=== PATIENT | female | born 1940 | race Caucasian/White ===

== ENCOUNTER 2018-07-31 17:01 | Observation (INO) | payer MEDICARE, OTHER ==
--- NOTE | 2018-07-31 17:33 | EDM.PDOC ---
ED HPI GENERAL MEDICAL PROBLEM - General Chief Complaint: General Stated Complaint: fall Time Seen by Provider: 07/31/18 17:05 Source of Information: Reports: Patient History Limitations: Reports: No Limitations - History of Present Illness INITIAL COMMENTS - FREE TEXT/NARRATIVE: Patient comes into the emergency department with EMS with complaints of a fall. Patient lives at the [facility] and had sustained a fall yesterday after tripping over her walker and again she fell today after tripping over her walker. Staff had noticed that she had some blood in her hair and also noted her lower extremities were extremely swollen. Staff ended up calling the ambulance for transfer to the emergency department. Patient denies any injuries and states that when she tripped and fell she did not hurt anything. However, when she fall yesterday did it did cause mild back pain that is resolved. Patient denies any shortness of breath, chest pain, dizziness, lightheadedness, headache, or GI upset. Patient does have a small puncture/laceration to the upper head with dried blood noted. Patient does not remember when her lower extremities became so swollen but does state that they do cause tenderness and discomfort the past couple of days. She denies anything making her lower extremities worse or better. Denies any recent injuries other than the fall yesterday and today or illnesses. Onset: Gradual Quality: Reports: Other Severity: Mild Improves with: Reports: None Worsens with: Reports: None Associated Symptoms: Reports: No Other Symptoms Bilateral Lower Leg Pain Score (Numeric/FACES): 9 - Related Data Allergies Allergy/AdvReac Type Severity Reaction Status Date / Time No Known Drug Allergies Allergy Other Verified 07/31/18 17:33 pollen extracts Allergy Irritabilit Verified 07/31/18 17:33 y Home Meds: Home Meds Ascorbic Acid [Vitamin C] 1,000 mg PO BID 01/15/14 [History] Calcium Carb & Citrate/Vit D3 [Calcium + Vitamin D3 Caplet] 1 each PO BID [History] Divalproex Sodium [Depakote] 500 mg PO Q12HR 01/15/14 [History] Levothyroxine 25 mcg PO ACBRK 01/15/14 [History] Magnesium Oxide [Magnesium] 400 mg PO DAILY 01/15/14 [History] Galax-3 Fatty Acids [Galax-3] 1,000 mg PO DAILY 01/15/14 [History] Primidone 250 mg PO BID 01/15/14 [History] Vitamin B Complex [B Complex] 1 each PO DAILY 01/15/14 [History] Zinc Gluconate 100 mg PO DAILY 01/15/14 [History] guaiFENesin/Codeine Phosphate [Guaifenesin AC Cough Syrup] 5 ml PO TID PRN 01/15 [History] Ibuprofen [IJD: Ibuprofen] 600 mg PO Q6H PRN #0 tablet 08/26/15 [Rx] Alendronate Sodium 70 mg PO Q7D 07/31/18 [History] Brimonidine Tartrate 1 drop EYERT TID 07/31/18 [History] Divalproex Sodium [Depakote] 125 mg PO ASDIRECTED 07/31/18 [History] Dorzolamide HCl/Timolol Maleat [Cosopt Eye Drops] 1 drop EYERT BID 07/31/18 [ History] Ferrous Sulfate 325 mg PO DAILY 07/31/18 [History] Sennosides/Docusate Sodium [Senna Plus Tablet] 1 each PO DAILY 07/31/18 [History ] Vit A/C/E AC/Znox/Cupric Oxide [Eye Vitamin-Minerals Tablet] 1 each PO BID 07/31 [History] Past Medical History HEENT History: Reports: Cataract, Impaired 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: Musculoskeletal History: Reports: Arthritis, Osteoporosis Neurological History: Reports: Seizure Endocrine/Metabolic History: Reports: Hypothyroidism - Infectious Disease History Infectious Disease History: Reports: Chicken Pox, Measles, Mumps - Past Surgical History HEENT Surgical History: Reports: Cataract Surgery Musculoskeletal Surgical History: Reports: Hip Replacement Social & Family History - Family History Family Medical History: Noncontributory - Living Situation & Occupation Living situation: Reports: Other ED ROS GENERAL - Review of Systems Review Of Systems: ROS reveals no pertinent complaints other than HPI. HEENT: Reports: No Symptoms Respiratory: Reports: No Symptoms Endocrine: Reports: No Symptoms GI/Abdominal: Reports: No Symptoms : Reports: No Symptoms Musculoskeletal: Reports: No Symptoms Neurological: Reports: No Symptoms Psychiatric: Reports: No Symptoms Hematologic/Lymphatic: Reports: No Symptoms Immunologic: Reports: No Symptoms ED EXAM, GENERAL - Physical Exam Exam: See Below Exam Limited By: No Limitations General Appearance: Alert, WD/WN, No Apparent Distress Eye Exam: Bilateral Eye: Abnormal Pupil (2 Left, 4 right- chronic condition), EOMI Throat/Mouth: Normal Inspection, Normal Lips Head: Normocephalic, Other (superficial puncture wound with dry blood noted. anterior-midline head) Neck: Normal Inspection, Supple, Non-Tender Respiratory/Chest: No Respiratory Distress, Lungs Clear, No Accessory Muscle Use , Chest Non-Tender, Decreased Breath Sounds Cardiovascular: Normal Peripheral Pulses, Regular Rate, Rhythm, Other (pedal and leg edema 3 + from ankle to knee bilateral ) Peripheral Pulses: 1+: Dorsalis Pedis (L), Dorsalis Pedis (R), 2+: Popliteal (L) , Popliteal (R), 3+: Radial (L), Radial (R), Femoral (L), Femoral (R) GI/Abdominal: Normal Bowel Sounds, Soft, Non-Tender, No Distention Extremities: Pedal Edema (3+), Slow Capillary Refill, Leg Pain, Increased Warmth , Redness Neurological: Alert, Oriented Course - Vital Signs Last Recorded V/S: Last Vital Signs Temp 36.6 C 07/31/18 17:05 Pulse 83 07/31/18 17:05 Resp 16 07/31/18 17:05 BP 118/49 L 07/31/18 17:05 Pulse Ox 96 07/31/18 17:05 - Orders/Labs/Meds Orders: Active Orders 24 hr Category Date Time Status EKG Documentation Completion [RC] STAT Care 07/31/18 17:22 Active Chest 1V Frontal [CR] Stat Exams 07/31/18 17:34 Ordered TSH ULTRASENSITIVE [CHEM] Stat Lab 07/31/18 18:53 Ordered VALPROIC ACID [REF] Stat Lab 07/31/18 18:52 Ordered Sodium Chloride 0.9% [Saline Flush] Med 07/31/18 17:22 Active 10 ml FLUSH ASDIRECTED PRN Peripheral IV Insertion Adult [OM.PC] Stat Oth 07/31/18 17:22 Ordered Medication Orders Sodium Chloride (Saline Flush) 10 ml FLUSH ASDIRECTED PRN PRN Reason: Keep Vein Open Labs: Laboratory Tests 07/31/18 07/31/18 07/31/18 Range/Units 18:08 18:08 18:08 WBC 4.3 (4.0-10.0) x10^3/uL RBC 3.70 L (4.00-5.50) x10^6/uL Hgb 11.8 L (12.0-16.0) g/dL Hct 35.8 (33.0-47.0) % MCV 96.8 H D (78.0-93.0) fL MCH 31.9 (26.0-32.0) pg MCHC 33.0 (32.0-36.0) g/dL RDW Coeff of Dominguez 17.1 H (10.0-15.0) % Plt Count 76 L (130-400) x10^3/uL Neut % (Auto) 57.0 (50.0-80.0) % Lymph % (Auto) 34.8 (25.0-50.0) % [place] % (Auto) 6.6 (2.0-11.0) % Eos % (Auto) 1.4 (0.0-4.0) % Baso % (Auto) 0.2 (0.2-1.2) % PT 11.1 (10.0-12.8) SEC INR 1.0 L (2.0-3.5) Sodium 142 (136-145) mmol/L Potassium 4.2 (3.5-5.1) mmol/L Chloride 104 (98-107) mmol/L Carbon Dioxide 30 (21-32) mmol/L Anion Gap 12.2 (10-20) mmol/L BUN 19 H (7-18) mg/dL Creatinine 0.5 L (0.55-1.02) mg/dL Est Cr Clr Drug Dosing 66.61 mL/min Estimated GFR (MDRD) > 60 Glucose 103 (74-106) mg/dL Calcium 8.9 (8.5-10.1) mg/dL Corrected Calcium 9.70 (8.5-10.1) mg/dL Total Bilirubin 0.7 (0.2-1.0) mg/dL AST 44 H (15-37) U/L ALT 26 (14-59) U/L Alkaline Phosphatase 102 (46-116) U/L Troponin I < 0.017 (<=0.056) ng/mL NT-Pro-B Natriuret Pep 715 H (<=450) pg/mL Total Protein 5.6 L (6.4-8.2) g/dL Albumin 3.0 L (3.4-5.0) g/dL Globulin 2.6 Albumin/Globulin Ratio 1.15 Meds: Medications Generic Name Dose Route Start Last Admin Trade Name Freq PRN Reason Stop Dose Admin Sodium Chloride 10 ml 07/31/18 17:22 Saline Flush FLUSH ASDIRECTED PRN Keep Vein Open Discontinued Medications Generic Name Dose Route Start Last Admin Trade Name Freq PRN Reason Stop Dose Admin Furosemide 20 mg 07/31/18 18:48 Lasix IV 07/31/18 18:49 ONETIME ONE Departure - Departure Time of Disposition: 19:00 Disposition: Home, Self-Care 01 Condition: Good Clinical Impression: Swelling of lower extremity Fall Qualifiers: Encounter type: initial encounter Qualified Code(s): W19.XXXA - Unspecified fall, initial encounter - Discharge Information *PRESCRIPTION DRUG MONITORING PROGRAM REVIEWED*: Not Applicable *COPY OF PRESCRIPTION DRUG MONITORING REPORT IN PATIENT DEMARCUS: Not Applicable Instructions: Edema Forms: ED Department Discharge Additional Instructions: 1. rest 2. elevated the extremities above the level of the heart while seated 3. Follow up in the clinic wednesday or wednesday with Jessica Heaton in the Clinic 4. We gave you 20mg of lasix in the ER today 5. Activity and diet as tolerated 6. Ensure safe foot wear in the home and make sure not to have loose items on the floor. 7. Call with questions or concerns - Problem List Review Problem List Initiated/Reviewed/Updated: Yes - My Orders Last 24 Hours: My Active Orders 07/31/18 17:22 EKG Documentation Completion [RC] STAT Sodium Chloride 0.9% [Saline Flush] 10 ml FLUSH ASDIRECTED PRN Peripheral IV Insertion Adult [OM.PC] Stat 07/31/18 17:34 Chest 1V Frontal [CR] Stat 07/31/18 18:52 VALPROIC ACID [REF] Stat 07/31/18 18:53 TSH ULTRASENSITIVE [CHEM] Stat - Assessment/Plan Last 24 Hours: My Active Orders 07/31/18 17:22 EKG Documentation Completion [RC] STAT Sodium Chloride 0.9% [Saline Flush] 10 ml FLUSH ASDIRECTED PRN Peripheral IV Insertion Adult [OM.PC] Stat 07/31/18 17:34 Chest 1V Frontal [CR] Stat 07/31/18 18:52 VALPROIC ACID [REF] Stat 07/31/18 18:53 TSH ULTRASENSITIVE [CHEM] Stat Assessment:: 1. Lowe extremity cellulitis 2. Fluid over load 3. Fall Plan: 1. Labs completed in the ER. Results reviewed with the patient 2. CT completed emergency department. Patient 3. Wound care completed emergency department. 4. EKG completed in the emergency room. Results reviewed with patient. sinus rhythm 5. Chest-xray completed in the ER. Results reviewed with the patient 6. Dr. Tam Consulted. She recommends follow up Wednesday or Wednesday in the Clinic with staff also request for TSH level and Depakote level. 7. Education provided to follow up care, activity, diet, and Lasix. 8. All questions and concerns addressed prior to discharge.
--- NOTE | 2018-07-31 18:03 | CT ---
[id number] CT/CT Head WO IV EXAM: CT Head WO IV CLINICAL DATA: TRAUMA COMPARISON: NO PREVIOUS SIMILAR EXAM IS AVAILABLE FOR COMPARISON. FINDINGS: There is no mass or mass effect. There is no hemorrhage or hydrocephalus. There are no extra-axial fluid collections. There are no sites of abnormal attenuation. IMPRESSION: NO PLAIN CT EVIDENCE OF ACUTE INTRACRANIAL PROCESS. Adán Melgar MD 07/31/18 [id number] Thank you for allowing us to participate in the care of your patient.
[2018-07-31 18:45] LABS: CHLORIDE,CL 104 mmol/L (98-107); SODIUM,NA 142 mmol/L (136-145)
[2018-07-31 18:46] LABS: ANION GAP 12.2 mmol/L (10-20)
[2018-07-31] MEDS ORDERED: Furosemide 20 MG/2 ML VIAL IV ONE (18:48)
[2018-07-31] MEDS: Sodium Chloride 0.9% 10 ML Syringe FLUSH PRN (19:09)
--- NOTE | 2018-07-31 19:33 | CR ---
[id number] RAD/RAD Chest PA or AP 1V EXAM: SINGLE VIEW CHEST. INDICATION: TRAUMA COMPARISON: NO PREVIOUS SIMILAR EXAM IS AVAILABLE FINDINGS: There is volume loss and pleural reaction at the left lung base. There is question of lower left rib fractures. If there is chest pain or abdominal pain, consider contrast CT chest and abdomen. There is no pneumothorax. The cardiac silhouette is enlarged. IMPRESSION: PLEURAL-PARENCHYMAL CHANGES AT LEFT LUNG BASE. CONSIDER FURTHER STUDIES IF NEEDED. QUESTION IS RAISED IF TRAUMA IS ON THE RIGHT OR LEFT SIDE. Adán Melgar MD 07/31/18 [id number] Thank you for allowing us to participate in the care of your patient.
[2018-07-31] MEDS ORDERED: diphenhydrAMINE 25 MG Cap PO PRN (22:42)
[2018-07-31] MEDS ORDERED: Ibuprofen 200 MG Tab PO PRN (22:58)
[2018-08-01] MEDS ORDERED: Levothyroxine 50 MCG Tab PO SCH (07:00)
[2018-08-01 07:42] LABS: ANION GAP 12.1 mmol/L (10-20); CHLORIDE,CL 104 mmol/L (98-107); SODIUM,NA 141 mmol/L (136-145)
[2018-08-01] MEDS ORDERED: Divalproex Sodium Delayed-Release 250 MG Tab.CR PO SCH (08:00)
[2018-08-01] MEDS ORDERED: Non-Formulary Medication 1 Each (Ascorbic Acid [Vitamin C] 1,000 MG) PO SCH (08:00)
[2018-08-01] MEDS ORDERED: Divalproex Sodium Delayed-Release 125 MG Cap.Sprink PO SCH ×2 (08:00→20:00)
[2018-08-01] MEDS: Fish Oil/Omega-3 Fatty Acids 1 Gm Cap PO SCH (08:18)
[2018-08-01] MEDS: Primidone 50 MG Tab PO SCH ×2 (08:18→20:37)
[2018-08-01] MEDS: Acetaminophen 500 MG Tab PO SCH ×3 (08:19→20:31)
[2018-08-01] MEDS: Ascorbic Acid 500 MG Tab PO SCH (08:19)
[2018-08-01] MEDS: Divalproex Sodium 500 MG Tab.ER PO SCH ×2 (08:20→20:32)
[2018-08-01] MEDS: Zinc (Zinc Gluconate) 50 MG Tab PO SCH (08:20)
[2018-08-01] MEDS: Cholecalciferol (Vitamin D3) 1,000 Unit Tab PO SCH (08:20)
[2018-08-01] MEDS: Ferrous Sulfate 325 MG Tab PO SCH (08:20)
[2018-08-01] MEDS: Calcium Carbonate/Vitamin D3 1250 MG-200 Unit Tab PO SCH ×2 (08:20→20:34)
[2018-08-01] MEDS: Divalproex Sodium Delayed-Release 250 MG Tab.CR PO SCH (08:20)
[2018-08-01] MEDS: Magnesium Oxide 400 MG Tab PO SCH (08:20)
[2018-08-01] MEDS: Vitamin B Complex Tab.ER PO SCH (08:34)
[2018-08-01] MEDS ORDERED: Iopamidol 612 MG/ML 100 ML Bottle IVPUSH ONE (10:25)
--- NOTE | 2018-08-01 11:35 | PCM.PN ---
- General Info Date of Service: 08/01/18 Admission Dx/Problem (Free Text): Pt. hospitalized this last evening for increased peripheral edema and lower extremity weakness. She states that she is feeling better this AM. PT worked with the patient and she was complaining of some low back pain. CT lumbar spine with contrast was ordered and results are pending. She was able to ambulate with assistance. Met with the patient's family. They are concerned about the patient's cognitive functioning and her ability to care for herself at [facility]. She has been having frequent falls and often doesn't call for assistance when she needs it. Family is requesting a "second opinion" as the staff at [facility] states that they feel she is a good candidate for the facility. Her legs are somewhat less edematous today. She states that overall her pain is improved from last night. Functional Status: Reports: Pain Controlled - Review of Systems General: Reports: No Symptoms HEENT: Reports: No Symptoms Pulmonary: Reports: No Symptoms Cardiovascular: Reports: Edema Gastrointestinal: Reports: No Symptoms Genitourinary: Reports: No Symptoms Musculoskeletal: Reports: No Symptoms Skin: Reports: No Symptoms Neurological: Reports: No Symptoms Psychiatric: Reports: No Symptoms - Patient Data Vitals - Most Recent: Last Vital Signs Temp 36.7 C 08/01/18 10:00 Pulse 88 08/01/18 10:00 Resp 18 08/01/18 10:00 BP 96/44 L 08/01/18 10:00 Pulse Ox 93 L 08/01/18 10:00 Weight - Most Recent: 49.895 kg I&O - Last 24 Hours: Intake & Output 07/31/18 08/01/18 08/01/18 22:59 06:59 14:59 Intake Total 50 Balance 50 Lab Results Last 24 Hours: Laboratory Results - last 24 hr 07/31/18 07/31/18 07/31/18 Range/Units 18:08 18:08 18:08 WBC 4.3 (4.0-10.0) x10^3/uL RBC 3.70 L (4.00-5.50) x10^6/uL Hgb 11.8 L (12.0-16.0) g/dL Hct 35.8 (33.0-47.0) % MCV 96.8 H D (78.0-93.0) fL MCH 31.9 (26.0-32.0) pg MCHC 33.0 (32.0-36.0) g/dL RDW Coeff of Dominguez 17.1 H (10.0-15.0) % Plt Count 76 L (130-400) x10^3/uL Neut % (Auto) 57.0 (50.0-80.0) % Lymph % (Auto) 34.8 (25.0-50.0) % [place] % (Auto) 6.6 (2.0-11.0) % Eos % (Auto) 1.4 (0.0-4.0) % Baso % (Auto) 0.2 (0.2-1.2) % PT 11.1 (10.0-12.8) SEC INR 1.0 L (2.0-3.5) Sodium 142 (136-145) mmol/L Potassium 4.2 (3.5-5.1) mmol/L Chloride 104 (98-107) mmol/L Carbon Dioxide 30 (21-32) mmol/L Anion Gap 12.2 (10-20) mmol/L BUN 19 H (7-18) mg/dL Creatinine 0.5 L (0.55-1.02) mg/dL Est Cr Clr Drug Dosing 66.61 mL/min Estimated GFR (MDRD) > 60 Glucose 103 (74-106) mg/dL Calcium 8.9 (8.5-10.1) mg/dL Corrected Calcium 9.70 (8.5-10.1) mg/dL Total Bilirubin 0.7 (0.2-1.0) mg/dL AST 44 H (15-37) U/L ALT 26 (14-59) U/L Alkaline Phosphatase 102 (46-116) U/L Troponin I < 0.017 (<=0.056) ng/mL NT-Pro-B Natriuret Pep 715 H (<=450) pg/mL Total Protein 5.6 L (6.4-8.2) g/dL Albumin 3.0 L (3.4-5.0) g/dL Globulin 2.6 Albumin/Globulin Ratio 1.15 TSH, Ultra Sensitive (0.358-3.74) uIU/mL 07/31/18 08/01/18 08/01/18 Range/Units 18:08 06:55 07:14 WBC 3.7 L (4.0-10.0) x10^3/uL RBC 3.43 L (4.00-5.50) x10^6/uL Hgb 11.0 L (12.0-16.0) g/dL Hct 33.2 (33.0-47.0) % MCV 96.8 H (78.0-93.0) fL MCH 32.1 H (26.0-32.0) pg MCHC 33.1 (32.0-36.0) g/dL RDW Coeff of Dominguez 17.0 H (10.0-15.0) % Plt Count 74 L (130-400) x10^3/uL Neut % (Auto) 53.6 (50.0-80.0) % Lymph % (Auto) 38.0 (25.0-50.0) % [place] % (Auto) 7.3 (2.0-11.0) % Eos % (Auto) 1.1 (0.0-4.0) % Baso % (Auto) 0.0 L (0.2-1.2) % PT (10.0-12.8) SEC INR (2.0-3.5) Sodium 141 (136-145) mmol/L Potassium 4.1 (3.5-5.1) mmol/L Chloride 104 (98-107) mmol/L Carbon Dioxide 29 (21-32) mmol/L Anion Gap 12.1 (10-20) mmol/L BUN 18 (7-18) mg/dL Creatinine 0.5 L (0.55-1.02) mg/dL Est Cr Clr Drug Dosing 66.61 mL/min Estimated GFR (MDRD) > 60 Glucose 95 (74-106) mg/dL Calcium 8.3 L (8.5-10.1) mg/dL Corrected Calcium 9.42 (8.5-10.1) mg/dL Total Bilirubin 0.8 (0.2-1.0) mg/dL AST 36 (15-37) U/L ALT 20 (14-59) U/L Alkaline Phosphatase 88 (46-116) U/L Troponin I (<=0.056) ng/mL NT-Pro-B Natriuret Pep (<=450) pg/mL Total Protein 4.9 L (6.4-8.2) g/dL Albumin 2.6 L (3.4-5.0) g/dL Globulin 2.3 Albumin/Globulin Ratio 1.13 TSH, Ultra Sensitive 4.516 H (0.358-3.74) uIU/mL Med Orders - Current: Current Medications Acetaminophen (Tylenol Extra Strength) 1,000 mg PO TID [facility] Last Admin: 08/01/18 08:19 Dose: 1,000 mg Ascorbic Acid (Vitamin C) 1,000 mg PO DAILY [facility] Last Admin: 08/01/18 08:19 Dose: 1,000 mg Calcium Carbonate (Calcium Carbonate/Vitamin D 1250 Mg-200 Unit) 1 tab PO BID [facility] Last Admin: 08/01/18 08:20 Dose: 1 tab Cholecalciferol (Vitamin D3) 2,000 units PO DAILY [facility] Last Admin: 08/01/18 08:20 Dose: 2,000 units Diphenhydramine HCl (Benadryl) 25 mg PO Q6H PRN PRN Reason: Allergies Divalproex Sodium (Depakote Er) 500 mg PO BID [facility] Last Admin: 08/01/18 08:20 Dose: 500 mg Divalproex Sodium (Depakote Sprinkle) 125 mg PO DAILY@1999 [facility] Divalproex Sodium (Divalproex Sodium) 250 mg PO DAILY [facility] Last Admin: 08/01/18 08:20 Dose: 250 mg Ferrous Sulfate (Ferrous Sulfate) 325 mg PO DAILY [facility] Last Admin: 08/01/18 08:20 Dose: 325 mg Fish Oil (Fish Oil) 1 gm PO DAILY [facility] Last Admin: 08/01/18 08:18 Dose: 1 gm Ibuprofen (Motrin) 600 mg PO Q8H PRN PRN Reason: PAIN Latanoprost (Xalatan 0.005% Ophth Soln) 0 ml EYERT BEDTIME [facility] Levothyroxine Sodium (Synthroid) 50 mcg PO ACBREAKFAST [facility] Magnesium Oxide (Magnesium Oxide) 400 mg PO DAILY [facility] Last Admin: 08/01/18 08:20 Dose: 400 mg Multivitamins/Minerals (Prosight) 2 tab PO BID [facility] Primidone (Mysoline) 250 mg PO BID [facility] Last Admin: 08/01/18 08:18 Dose: 250 mg Senna/Docusate Sodium (Senna Plus) 1 tab PO DAILY [facility] Last Admin: 08/01/18 08:19 Dose: 1 tab Sodium Chloride (Saline Flush) 10 ml FLUSH ASDIRECTED PRN PRN Reason: Keep Vein Open Last Admin: 07/31/18 19:09 Dose: 10 ml Vitamin B Complex (Balanced B-50) 1 each PO DAILY [facility] Last Admin: 08/01/18 08:34 Dose: 1 each Zinc Gluconate (Zinc) 100 mg PO DAILY [facility] Last Admin: 08/01/18 08:20 Dose: 100 mg Discontinued Medications Divalproex Sodium (Depakote Sprinkle) 125 mg PO BID [facility] Furosemide (Lasix) 20 mg IV ONETIME ONE Stop: 07/31/18 18:49 Last Admin: 07/31/18 19:08 Dose: 20 mg Iopamidol (Isovue-300 (61%)) 100 ml IVPUSH ONETIME ONE Stop: 08/01/18 10:26 Last Admin: 08/01/18 10:37 Dose: 100 ml Levothyroxine Sodium (Synthroid) 50 mcg PO ACBRK [facility] Last Admin: 08/01/18 06:07 Dose: 50 mcg Non-Formulary Medication (Ascorbic Acid [Vitamin C]) 1,000 mg PO BID [facility] - Exam General: Alert, Oriented Neck: Supple Lungs: Clear to Auscultation, Normal Respiratory Effort Cardiovascular: Regular Rate, Regular Rhythm GI/Abdominal Exam: Normal Bowel Sounds, Soft, Non-Tender, No Organomegaly, No Distention (Female) Exam: Deferred Back Exam: Normal Inspection, Full Range of Motion Extremities: Normal Inspection, Normal Range of Motion, Non-Tender, Pedal Edema Skin: Warm, Dry, Intact Neurological: No New Focal Deficit Psy/Mental Status: Alert, Normal Affect, Normal Mood - Problem List Review Problem List Initiated/Reviewed/Updated: Yes - My Orders Last 24 Hours: My Active Orders 07/31/18 19:37 Patient Status [ADT] Routine Urinary Catheter Assessment [RC] ,20 07/31/18 19:59 Intake and Output [RC] 06,18 Up With Assistance [RC] 08,20 Vital Signs [RC] 06,10,14,18,22,02 07/31/18 22:42 diphenhydrAMINE [Benadryl] 25 mg PO Q6H PRN 07/31/18 22:58 Ibuprofen [Motrin] 600 mg PO Q8H PRN 08/01/18 02:17 Code Status [Resuscitation Status] Routine 08/01/18 06:56 Consult to Physical Therapy [PT Evaluation and Treatment] [CONS] Routine OT Evaluation and Treatment [CONS] Routine 08/01/18 08:00 Acetaminophen [Tylenol Extra Strength] 1,000 mg PO TID Ascorbic Acid [Vitamin C] 1,000 mg PO DAILY Beta-Carotene(A) w/C & E/Min [Prosight] 2 tab PO BID Calcium Carbonate/Vitamin D3 [Calcium Carbonate/Vitamin D 1250 MG-200 Unit] 1 tab PO BID Cholecalciferol (Vitamin D3) [Vitamin D3] 2,000 units PO DAILY Divalproex Sodium 250 mg PO DAILY Divalproex Sodium [Depakote ER] 500 mg PO BID Docusate Sodium/Sennosides [Senna Plus] 1 tab PO DAILY Ferrous Sulfate 325 mg PO DAILY Fish Oil/[place]-3 Fatty Acids [Fish Oil] 1 gm PO DAILY Magnesium Oxide 400 mg PO DAILY Primidone [Mysoline] 250 mg PO BID Vitamin B Complex [Balanced B-50] 1 each PO DAILY Zinc Gluconate [Zinc] 100 mg PO DAILY 08/01/18 10:15 Lumbar Spine w Cont [CT] Routine 08/01/18 11:01 Antiembolic Devices [RC] PER UNIT ROUTINE Antiembolic Hose [OM.PC] Routine 08/01/18 20:00 Divalproex Sodium [Depakote Sprinkle] 125 mg PO DAILY@2000 Latanoprost [Xalatan 0.005% Ophth Soln] 0 ml EYERT BEDTIME 08/01/18 Breakfast Heart Healthy Diet [DIET] 08/02/18 07:00 Levothyroxine [Synthroid] 50 mcg PO ACBREAKFAST - Plan Plan:: CT lumbar spine with contast is pending. Her labs this AM are unchanged. Antiembolic hose were ordered. Will have PT work with the patient this afternoon and cognitive eval was ordered from OT. Will discuss findings with patient's family later this afternoon. Social work was involved with family as well this AM.
--- NOTE | 2018-08-01 11:48 | CT ---
[id number] CT/CT Lumbar Spine W IV Exam: CT Lumbar Spine W IV Clinical Data: BACK PAIN COMPARISON: NO PREVIOUS SIMILAR EXAM IS AVAILABLE FINDINGS: There is massive splenomegaly. This raises the question of chronic lymphogenous leukemia or myelofibrosis. Degenerative changes of the lumbar spine are seen. There is no lytic or blastic change. There is no subluxation. There is mild loss of height of multiple vertebrae. Age of the mild fracture deformities is indeterminate. L1-L2: There is marginal osteophyte at this level. L2-L3: There is a mild bulging annulus. L3-L4: There is spinal stenosis. There is significant bilateral foraminal narrowing. L4-L5: There is borderline spinal stenosis. There is significant bilateral foraminal narrowing. L5-S1: No abnormality is seen at this level. IMPRESSION: MASSIVE SPLENOMEGALY. MILD COMPRESSION DEFORMITIES OF THORACIC AND LUMBAR SPINE AGE INDETERMINATE. MODERATE DEGENERATIVE CHANGES MID LUMBAR SPINE. Adán Melgar MD 08/01/18 1647 Thank you for allowing us to participate in the care of your patient.
[2018-08-01] MEDS ORDERED: Acetaminophen/HYDROcodone 325-5 MG Tab PO PRN (12:14)
[2018-08-01] MEDS: Beta-Carotene (Vitamin A) w/Vitamin C & E plus Minerals Tab PO SCH ×2 (12:41→20:33)
--- NOTE | 2018-08-01 18:37 | PCM.PN ---
- General Info Date of Service: 08/01/18 Admission Dx/Problem (Free Text): CT scan showed several areas of compression fracture of the T and L spine as well as areas of neuroforaminal narrowing/degenerative disk disease of the L spine. Age of these injuries is undetermined. She also had evidence of splenomegaly. He has no known history of lymphoma, leukemia, or blood dyscrasias. Pt. was able to participate in PT today. Pt. states that they would like to work with her tomorrow AM and afternoon and anticipate discharge tomorrow afternoon. OT cognitive eval is pending. Functional Status: Reports: Pain Controlled - Review of Systems General: Reports: No Symptoms HEENT: Reports: No Symptoms Pulmonary: Reports: No Symptoms Cardiovascular: Reports: No Symptoms Gastrointestinal: Reports: No Symptoms Genitourinary: Reports: No Symptoms Musculoskeletal: Reports: Back Pain Skin: Reports: No Symptoms Neurological: Reports: No Symptoms Psychiatric: Reports: No Symptoms - Patient Data Vitals - Most Recent: Last Vital Signs Temp 36.3 C 08/01/18 14:00 Pulse 78 08/01/18 14:00 Resp 16 08/01/18 14:00 BP 110/45 L 08/01/18 14:00 Pulse Ox 93 L 08/01/18 14:00 Weight - Most Recent: 49.895 kg I&O - Last 24 Hours: Intake & Output 08/01/18 08/01/18 08/01/18 06:59 14:59 22:59 Intake Total 50 240 Balance 50 240 Lab Results Last 24 Hours: Laboratory Results - last 24 hr 07/31/18 07/31/18 07/31/18 Range/Units 18:08 18:08 18:08 WBC (4.0-10.0) x10^3/uL RBC (4.00-5.50) x10^6/uL Hgb (12.0-16.0) g/dL Hct (33.0-47.0) % MCV (78.0-93.0) fL MCH (26.0-32.0) pg MCHC (32.0-36.0) g/dL RDW Coeff of Dominguez (10.0-15.0) % Plt Count (130-400) x10^3/uL Neut % (Auto) (50.0-80.0) % Lymph % (Auto) (25.0-50.0) % [place] % (Auto) (2.0-11.0) % Eos % (Auto) (0.0-4.0) % Baso % (Auto) (0.2-1.2) % PT 11.1 (10.0-12.8) SEC INR 1.0 L (2.0-3.5) Sodium 142 (136-145) mmol/L Potassium 4.2 (3.5-5.1) mmol/L Chloride 104 (98-107) mmol/L Carbon Dioxide 30 (21-32) mmol/L Anion Gap 12.2 (10-20) mmol/L BUN 19 H (7-18) mg/dL Creatinine 0.5 L (0.55-1.02) mg/dL Est Cr Clr Drug Dosing 66.61 mL/min Estimated GFR (MDRD) > 60 Glucose 103 (74-106) mg/dL Calcium 8.9 (8.5-10.1) mg/dL Corrected Calcium 9.70 (8.5-10.1) mg/dL Total Bilirubin 0.7 (0.2-1.0) mg/dL AST 44 H (15-37) U/L ALT 26 (14-59) U/L Alkaline Phosphatase 102 (46-116) U/L Troponin I < 0.017 (<=0.056) ng/mL NT-Pro-B Natriuret Pep 715 H (<=450) pg/mL Total Protein 5.6 L (6.4-8.2) g/dL Albumin 3.0 L (3.4-5.0) g/dL Globulin 2.6 Albumin/Globulin Ratio 1.15 TSH, Ultra Sensitive 4.516 H (0.358-3.74) uIU/mL 08/01/18 08/01/18 Range/Units 06:55 07:14 WBC 3.7 L (4.0-10.0) x10^3/uL RBC 3.43 L (4.00-5.50) x10^6/uL Hgb 11.0 L (12.0-16.0) g/dL Hct 33.2 (33.0-47.0) % MCV 96.8 H (78.0-93.0) fL MCH 32.1 H (26.0-32.0) pg MCHC 33.1 (32.0-36.0) g/dL RDW Coeff of Dominguez 17.0 H (10.0-15.0) % Plt Count 74 L (130-400) x10^3/uL Neut % (Auto) 53.6 (50.0-80.0) % Lymph % (Auto) 38.0 (25.0-50.0) % [place] % (Auto) 7.3 (2.0-11.0) % Eos % (Auto) 1.1 (0.0-4.0) % Baso % (Auto) 0.0 L (0.2-1.2) % PT (10.0-12.8) SEC INR (2.0-3.5) Sodium 141 (136-145) mmol/L Potassium 4.1 (3.5-5.1) mmol/L Chloride 104 (98-107) mmol/L Carbon Dioxide 29 (21-32) mmol/L Anion Gap 12.1 (10-20) mmol/L BUN 18 (7-18) mg/dL Creatinine 0.5 L (0.55-1.02) mg/dL Est Cr Clr Drug Dosing 66.61 mL/min Estimated GFR (MDRD) > 60 Glucose 95 (74-106) mg/dL Calcium 8.3 L (8.5-10.1) mg/dL Corrected Calcium 9.42 (8.5-10.1) mg/dL Total Bilirubin 0.8 (0.2-1.0) mg/dL AST 36 (15-37) U/L ALT 20 (14-59) U/L Alkaline Phosphatase 88 (46-116) U/L Troponin I (<=0.056) ng/mL NT-Pro-B Natriuret Pep (<=450) pg/mL Total Protein 4.9 L (6.4-8.2) g/dL Albumin 2.6 L (3.4-5.0) g/dL Globulin 2.3 Albumin/Globulin Ratio 1.13 TSH, Ultra Sensitive (0.358-3.74) uIU/mL Med Orders - Current: Current Medications Acetaminophen (Tylenol Extra Strength) 1,000 mg PO TID [facility] Last Admin: 08/01/18 12:23 Dose: 1,000 mg Hydrocodone Bitart/Acetaminophen ([place] 325-5 Mg) 1 tab PO Q4H PRN PRN Reason: Pain Ascorbic Acid (Vitamin C) 1,000 mg PO DAILY [facility] Last Admin: 08/01/18 08:19 Dose: 1,000 mg Calcium Carbonate (Calcium Carbonate/Vitamin D 1250 Mg-200 Unit) 1 tab PO BID [facility] Last Admin: 08/01/18 08:20 Dose: 1 tab Cholecalciferol (Vitamin D3) 2,000 units PO DAILY [facility] Last Admin: 08/01/18 08:20 Dose: 2,000 units Diphenhydramine HCl (Benadryl) 25 mg PO Q6H PRN PRN Reason: Allergies Divalproex Sodium (Depakote Er) 500 mg PO BID [facility] Last Admin: 08/01/18 08:20 Dose: 500 mg Divalproex Sodium (Depakote Sprinkle) 125 mg PO DAILY@2000 [facility] Divalproex Sodium (Divalproex Sodium) 250 mg PO DAILY [facility] Last Admin: 08/01/18 08:20 Dose: 250 mg Ferrous Sulfate (Ferrous Sulfate) 325 mg PO DAILY [facility] Last Admin: 08/01/18 08:20 Dose: 325 mg Fish Oil (Fish Oil) 1 gm PO DAILY [facility] Last Admin: 08/01/18 08:18 Dose: 1 gm Ibuprofen (Motrin) 600 mg PO Q8H PRN PRN Reason: PAIN Latanoprost (Xalatan 0.005% Ophth Soln) 0 ml EYERT BEDTIME [facility] Levothyroxine Sodium (Synthroid) 50 mcg PO ACBREAKFAST [facility] Magnesium Oxide (Magnesium Oxide) 400 mg PO DAILY [facility] Last Admin: 08/01/18 08:20 Dose: 400 mg Multivitamins/Minerals (Prosight) 2 tab PO BID [facility] Last Admin: 08/01/18 12:41 Dose: Not Given Primidone (Mysoline) 250 mg PO BID [facility] Last Admin: 08/01/18 08:18 Dose: 250 mg Senna/Docusate Sodium (Senna Plus) 1 tab PO DAILY [facility] Last Admin: 08/01/18 08:19 Dose: 1 tab Sodium Chloride (Saline Flush) 10 ml FLUSH ASDIRECTED PRN PRN Reason: Keep Vein Open Last Admin: 07/31/18 19:09 Dose: 10 ml Vitamin B Complex (Balanced B-50) 1 each PO DAILY [facility] Last Admin: 08/01/18 08:34 Dose: 1 each Zinc Gluconate (Zinc) 100 mg PO DAILY [facility] Last Admin: 08/01/18 08:20 Dose: 100 mg Discontinued Medications Divalproex Sodium (Depakote Sprinkle) 125 mg PO BID [facility] Furosemide (Lasix) 20 mg IV ONETIME ONE Stop: 07/31/18 18:49 Last Admin: 07/31/18 19:08 Dose: 20 mg Iopamidol (Isovue-300 (61%)) 100 ml IVPUSH ONETIME ONE Stop: 08/01/18 10:26 Last Admin: 08/01/18 10:37 Dose: 100 ml Levothyroxine Sodium (Synthroid) 50 mcg PO ACBRK [facility] Last Admin: 08/01/18 06:07 Dose: 50 mcg Non-Formulary Medication (Ascorbic Acid [Vitamin C]) 1,000 mg PO BID [facility] - Exam General: Alert, Oriented Lungs: Clear to Auscultation, Normal Respiratory Effort Cardiovascular: Regular Rate, Regular Rhythm - Problem List Review Problem List Initiated/Reviewed/Updated: Yes - My Orders Last 24 Hours: My Active Orders 07/31/18 19:37 Patient Status [ADT] Routine Urinary Catheter Assessment [RC] 07/31/18 19:59 Intake and Output [RC] 06,18 Up With Assistance [RC] 08,20 Vital Signs [RC] 06,10,14,18,22,02 07/31/18 22:42 diphenhydrAMINE [Benadryl] 25 mg PO Q6H PRN 07/31/18 22:58 Ibuprofen [Motrin] 600 mg PO Q8H PRN 08/01/18 02:17 Code Status [Resuscitation Status] Routine 08/01/18 06:56 Consult to Physical Therapy [PT Evaluation and Treatment] [CONS] Routine OT Evaluation and Treatment [CONS] Routine 08/01/18 08:00 Acetaminophen [Tylenol Extra Strength] 1,000 mg PO TID Ascorbic Acid [Vitamin C] 1,000 mg PO DAILY Beta-Carotene(A) w/C & E/Min [Prosight] 2 tab PO BID Calcium Carbonate/Vitamin D3 [Calcium Carbonate/Vitamin D 1250 MG-200 Unit] 1 tab PO BID Cholecalciferol (Vitamin D3) [Vitamin D3] 2,000 units PO DAILY Divalproex Sodium 250 mg PO DAILY Divalproex Sodium [Depakote ER] 500 mg PO BID Docusate Sodium/Sennosides [Senna Plus] 1 tab PO DAILY Ferrous Sulfate 325 mg PO DAILY Fish Oil/[place]-3 Fatty Acids [Fish Oil] 1 gm PO DAILY Magnesium Oxide 400 mg PO DAILY Primidone [Mysoline] 250 mg PO BID Vitamin B Complex [Balanced B-50] 1 each PO DAILY Zinc Gluconate [Zinc] 100 mg PO DAILY 08/01/18 11:01 Antiembolic Devices [RC] PER UNIT ROUTINE Antiembolic Hose [OM.PC] Routine 08/01/18 12:14 Acetaminophen/HYDROcodone [[place] 325-5 MG] 1 tab PO Q4H PRN 08/01/18 20:00 Divalproex Sodium [Depakote Sprinkle] 125 mg PO DAILY@2000 Latanoprost [Xalatan 0.005% Ophth Soln] 0 ml EYERT BEDTIME 08/01/18 Breakfast Heart Healthy Diet [DIET] 08/02/18 05:11 BLOOD SMEARS TO PATHOLOGIST [REF] AM CBC WITH AUTO DIFF [HEME] AM COMPREHENSIVE METABOLIC PN,CMP [CHEM] AM LACTATE DEHYDROGENASE,LDH [CHEM] AM 08/02/18 07:00 Levothyroxine [Synthroid] 50 mcg PO ACBREAKFAST - Plan Plan:: CT lumbar spine with contast is pending. Her labs this AM are unchanged. Antiembolic hose were ordered. Will have PT work with the patient this afternoon and cognitive eval was ordered from OT. Will discuss findings with patient's family later this afternoon. Social work was involved with family as well this AM.
[2018-08-01] MEDS ORDERED: Latanoprost 0.005% Ophth Soln 2.5 ML Bottle EYERT SCH (20:00)
[2018-08-01] MEDS: Sodium Chloride 0.9% 10 ML Syringe FLUSH PRN (20:31)
[2018-08-02] MEDS ORDERED: Levothyroxine 50 MCG Tab PO SCH (07:00)
[2018-08-02 07:25] LABS: CHLORIDE,CL 104 mmol/L (98-107); SODIUM,NA 142 mmol/L (136-145)
[2018-08-02 07:27] LABS: ANION GAP 10.3 mmol/L (10-20)
[2018-08-02] MEDS: Acetaminophen 500 MG Tab PO SCH ×2 (08:18→12:22)
[2018-08-02] MEDS: Zinc (Zinc Gluconate) 50 MG Tab PO SCH (08:20)
[2018-08-02] MEDS: Primidone 50 MG Tab PO SCH (08:20)
[2018-08-02] MEDS: Cholecalciferol (Vitamin D3) 1,000 Unit Tab PO SCH (08:21)
[2018-08-02] MEDS: Beta-Carotene (Vitamin A) w/Vitamin C & E plus Minerals Tab PO SCH (08:21)
[2018-08-02] MEDS: Ferrous Sulfate 325 MG Tab PO SCH (08:21)
[2018-08-02] MEDS: Calcium Carbonate/Vitamin D3 1250 MG-200 Unit Tab PO SCH (08:21)
[2018-08-02] MEDS: Divalproex Sodium Delayed-Release 250 MG Tab.CR PO SCH (08:21)
[2018-08-02] MEDS: Magnesium Oxide 400 MG Tab PO SCH (08:21)
[2018-08-02] MEDS: Ascorbic Acid 500 MG Tab PO SCH (08:22)
[2018-08-02] MEDS: Vitamin B Complex Tab.ER PO SCH (08:22)
[2018-08-02] MEDS: Fish Oil/Omega-3 Fatty Acids 1 Gm Cap PO SCH (08:22)
[2018-08-02] MEDS: Divalproex Sodium 500 MG Tab.ER PO SCH (08:22)
--- NOTE | 2018-08-02 13:31 | PCM.DCSUM1 ---
Discharge Summary - Hospital Course Brief History: Patient admitted with general weakness and bilateral lower extremity edema. Edema has improved, as has leg pain and weakness. Some question as to whether [facility] is appropriate living situation as she has had numerous falls. Diagnosis: Stroke: No Modified [place] Scale: No Symptoms at All Modified [place] Scale Score: 0 - Discharge Data Discharge Date: 08/02/18 Discharge Disposition: Home, Self-Care 01 Condition: Good - Discharge Diagnosis/Problem(s) (1) Swelling of lower extremity SNOMED Code(s): 723451485 ICD Code: M79.89 - OTHER SPECIFIED SOFT TISSUE DISORDERS Status: Acute Priority: Medium Current Visit: Yes - Patient Summary/Data Consults: Consultations 08/01/18 06:56 Consult to Physical Therapy [PT Evaluation and Treatment] [CONS] Routine OT Evaluation and Treatment [CONS] Routine - Patient Instructions Diet: Usual Diet as Tolerated Activity: As Tolerated Showering/Bathing: May Shower - Discharge Plan *PRESCRIPTION DRUG MONITORING PROGRAM REVIEWED*: Not Applicable *COPY OF PRESCRIPTION DRUG MONITORING REPORT IN PATIENT DEMARCUS: Not Applicable Home Medications: Home Meds Ascorbic Acid [Vitamin C] 1,000 mg PO DAILY 01/15/14 [History] Calcium Carb & Citrate/Vit D3 [Calcium + Vitamin D3 Caplet] 1 each PO BID [History] Levothyroxine 50 mcg PO ACBRK 01/15/14 [History] Magnesium Oxide [Magnesium] 400 mg PO DAILY 01/15/14 [History] [place]-3 Fatty Acids [[place]-3] 1,000 mg PO DAILY 01/15/14 [History] Primidone 250 mg PO BID 01/15/14 [History] Vitamin B Complex [B Complex] 1 each PO DAILY 01/15/14 [History] Zinc Gluconate 100 mg PO DAILY 01/15/14 [History] Acetaminophen [Tylenol Extra Strength] 1,000 mg PO TID 07/31/18 [History] Alendronate Sodium 70 mg PO Q7D 07/31/18 [History] Brimonidine Tartrate 1 drop EYERT TID 07/31/18 [History] Cholecalciferol (Vitamin D3) [Vitamin D3] 2,000 unit PO DAILY 07/31/18 [History] Dextran 70/Hypromellose [Artificial Tears] 1 each OP Q4H PRN 07/31/18 [History] Dextromethorphan HBr [Vicks Dayquil Cough] 30 ml PO Q6H PRN 07/31/18 [History] Divalproex Sodium [Depakote] 125 mg PO BID 07/31/18 [History] Dorzolamide HCl/Timolol Maleat [Cosopt Eye Drops] 1 drop EYERT BID 07/31/18 [ History] Ferrous Sulfate 325 mg PO DAILY 07/31/18 [History] Ibuprofen [IJD: Ibuprofen] 600 mg PO Q8H PRN 07/31/18 [History] Latanoprost [Xalatan] 1 drop EYERT QPM 07/31/18 [History] Menthol [Biofreeze] 1 applic TOP QID 07/31/18 [History] Sennosides/Docusate Sodium [Senna Plus Tablet] 1 each PO DAILY 07/31/18 [History ] Vit A/C/E AC/Znox/Cupric Oxide [Eye Vitamin-Minerals Tablet] 1 each PO BID 07/31 [History] diphenhydrAMINE HCl [Benadryl] 25 mg PO Q6H PRN 07/31/18 [History] Divalproex Sodium [Depakote ER] 500 mg PO BID 08/01/18 [History] Patient Handouts: Edema, Heart Failure, [id number] Forms: ED Department Discharge Referrals: Catherine Tam DO [Primary Care Provider] - - Discharge Summary/Plan Comment DC Time >30 min.: Yes - General Info Date of Service: 08/02/18 Admission Dx/Problem (Free Text: CT scan showed several areas of compression fracture of the T and L spine as well as areas of neuroforaminal narrowing/degenerative disk disease of the L spine. Age of these injuries is undetermined. She also had evidence of splenomegaly. He has no known history of lymphoma, leukemia, or blood dyscrasias. Pt. was able to participate in PT today. Pt. states that they would like to work with her tomorrow AM and afternoon and anticipate discharge tomorrow afternoon. OT cognitive eval is pending. Functional Status: Reports: Pain Controlled, Tolerating Diet, Ambulating, Urinating. Denies: New Symptoms - Review of Systems General: Reports: No Symptoms HEENT: Reports: No Symptoms Pulmonary: Reports: No Symptoms Cardiovascular: Reports: Edema (bilateral lower extremities) Gastrointestinal: Reports: No Symptoms Genitourinary: Reports: No Symptoms Musculoskeletal: Reports: No Symptoms Skin: Reports: No Symptoms Neurological: Reports: No Symptoms Psychiatric: Reports: No Symptoms - Patient Data Vitals - Most Recent: Last Vital Signs Temp 36.9 C 08/02/18 10:00 Pulse 81 08/02/18 10:00 Resp 16 08/02/18 10:00 BP 105/38 L 08/02/18 10:00 Pulse Ox 94 L 08/02/18 10:00 Weight - Most Recent: 49.895 kg I&O - Last 24 hours: Intake & Output 08/01/18 08/02/18 08/02/18 22:59 06:59 14:59 Intake Total 360 360 Balance 360 360 Lab Results - Last 24 hrs: Laboratory Results - last 24 hr 07/31/18 08/02/18 08/02/18 Range/Units 18:08 06:55 06:55 WBC 3.8 L (4.0-10.0) x10^3/uL RBC 3.62 L (4.00-5.50) x10^6/uL Hgb 11.5 L (12.0-16.0) g/dL Hct 35.1 (33.0-47.0) % MCV 97.0 H (78.0-93.0) fL MCH 31.8 (26.0-32.0) pg MCHC 32.8 (32.0-36.0) g/dL RDW Coeff of Dominguez 17.3 H (10.0-15.0) % Plt Count 80 L (130-400) x10^3/uL Neut % (Auto) 48.5 L (50.0-80.0) % Lymph % (Auto) 43.5 (25.0-50.0) % [place] % (Auto) 6.6 (2.0-11.0) % Eos % (Auto) 1.1 (0.0-4.0) % Baso % (Auto) 0.3 (0.2-1.2) % Sodium 142 (136-145) mmol/L Potassium 4.3 (3.5-5.1) mmol/L Chloride 104 (98-107) mmol/L Carbon Dioxide 32 (21-32) mmol/L Anion Gap 10.3 (10-20) mmol/L BUN 19 H (7-18) mg/dL Creatinine 0.5 L (0.55-1.02) mg/dL Est Cr Clr Drug Dosing 66.61 mL/min Estimated GFR (MDRD) > 60 Glucose 91 (74-106) mg/dL Calcium 8.5 (8.5-10.1) mg/dL Corrected Calcium 9.70 (8.5-10.1) mg/dL Total Bilirubin 0.7 (0.2-1.0) mg/dL AST 39 H (15-37) U/L ALT 21 (14-59) U/L Alkaline Phosphatase 90 (46-116) U/L Lactate Dehydrogenase 294 H (81-234) U/L Total Protein 5.0 L (6.4-8.2) g/dL Albumin 2.5 L (3.4-5.0) g/dL Globulin 2.5 Albumin/Globulin Ratio 1.00 Valproic Acid 44 L (50-100) ug/mL Med Orders - Current: Current Medications Acetaminophen (Tylenol Extra Strength) 1,000 mg PO TID [facility] Last Admin: 08/02/18 12:22 Dose: 1,000 mg Hydrocodone Bitart/Acetaminophen ([place] 325-5 Mg) 1 tab PO Q4H PRN PRN Reason: Pain Ascorbic Acid (Vitamin C) 1,000 mg PO DAILY [facility] Last Admin: 08/02/18 08:22 Dose: 1,000 mg Calcium Carbonate (Calcium Carbonate/Vitamin D 1250 Mg-200 Unit) 1 tab PO BID [facility] Last Admin: 08/02/18 08:21 Dose: 1 tab Cholecalciferol (Vitamin D3) 2,000 units PO DAILY [facility] Last Admin: 08/02/18 08:21 Dose: 2,000 units Diphenhydramine HCl (Benadryl) 25 mg PO Q6H PRN PRN Reason: Allergies Divalproex Sodium (Depakote Er) 500 mg PO BID [facility] Last Admin: 08/02/18 08:22 Dose: 500 mg Divalproex Sodium (Depakote Sprinkle) 125 mg PO DAILY@1999 [facility] Last Admin: 08/01/18 20:35 Dose: 125 mg Divalproex Sodium (Divalproex Sodium) 250 mg PO DAILY [facility] Last Admin: 08/02/18 08:21 Dose: 250 mg Ferrous Sulfate (Ferrous Sulfate) 325 mg PO DAILY [facility] Last Admin: 08/02/18 08:21 Dose: 325 mg Fish Oil (Fish Oil) 1 gm PO DAILY [facility] Last Admin: 08/02/18 08:22 Dose: 1 gm Ibuprofen (Motrin) 600 mg PO Q8H PRN PRN Reason: PAIN Latanoprost (Xalatan 0.005% Ophth Soln) 0 ml EYERT BEDTIME [facility] Last Admin: 08/01/18 20:32 Dose: 1 drop Levothyroxine Sodium (Synthroid) 50 mcg PO ACBREAKFAST [facility] Last Admin: 08/02/18 06:29 Dose: 50 mcg Magnesium Oxide (Magnesium Oxide) 400 mg PO DAILY [facility] Last Admin: 08/02/18 08:21 Dose: 400 mg Multivitamins/Minerals (Prosight) 2 tab PO BID [facility] Last Admin: 08/02/18 08:21 Dose: 2 tab Primidone (Mysoline) 250 mg PO BID [facility] Last Admin: 08/02/18 08:20 Dose: 250 mg Senna/Docusate Sodium (Senna Plus) 1 tab PO DAILY [facility] Last Admin: 08/02/18 08:21 Dose: 1 tab Sodium Chloride (Saline Flush) 10 ml FLUSH ASDIRECTED PRN PRN Reason: Keep Vein Open Last Admin: 08/01/18 20:31 Dose: 10 ml Vitamin B Complex (Balanced B-50) 1 each PO DAILY [facility] Last Admin: 08/02/18 08:22 Dose: 1 each Zinc Gluconate (Zinc) 100 mg PO DAILY [facility] Last Admin: 08/02/18 08:20 Dose: 100 mg Discontinued Medications Divalproex Sodium (Depakote Sprinkle) 125 mg PO BID [facility] Furosemide (Lasix) 20 mg IV ONETIME ONE Stop: 07/31/18 18:49 Last Admin: 07/31/18 19:08 Dose: 20 mg Iopamidol (Isovue-300 (61%)) 100 ml IVPUSH ONETIME ONE Stop: 08/01/18 10:26 Last Admin: 08/01/18 10:37 Dose: 100 ml Levothyroxine Sodium (Synthroid) 50 mcg PO ACBRK [facility] Last Admin: 08/01/18 06:07 Dose: 50 mcg Non-Formulary Medication (Ascorbic Acid [Vitamin C]) 1,000 mg PO BID [facility] - Exam General: Reports: Alert, Oriented, Cooperative, No Acute Distress HEENT: Reports: Pupils Equal, Pupils Reactive, EOMI Neck: Reports: Supple Lungs: Reports: Clear to Auscultation, Normal Respiratory Effort Cardiovascular: Reports: Regular Rate, Regular Rhythm GI/Abdominal Exam: Normal Bowel Sounds, Soft, Non-Tender, No Organomegaly, No Distention, No Abnormal Bruit, No Mass, Pelvis Stable Back Exam: Reports: Normal Inspection, Full Range of Motion Extremities: Normal Range of Motion, Non-Tender, Normal Capillary Refill, Pedal Edema, Leg Pain Skin: Reports: Warm, Dry, Intact Neurological: Reports: No New Focal Deficit, Normal Gait Psy/Mental Status: Reports: Alert, Normal Affect, Normal Mood Physical Findings Comments:: Bilateral leg edema. Currently does have ebony wraps around to help control and minimize swelling.
[2018-08-02 14:07] VITALS: BP 105/40
== END 2018-08-02 14:40 | disposition home or self-care (01) ==
LOC: VM.ED 17:01 → VM.MS 19:37
PROVIDERS: ADMIT Physician Assistant; ATTEND Physician Assistant
DX: M79.89 Other specified soft tissue disorders (principal); R53.1 Weakness; M48.061 Spinal stenosis, lumbar region without neurogenic claudication; M51.36 Other intervertebral disc degeneration, lumbar region; S12.9XXA Fracture of neck, unspecified, initial encounter; S32.008A Other fracture of unspecified lumbar vertebra, initial encounter for closed fracture; D64.9 Anemia, unspecified; R70.1 Abnormal plasma viscosity; D70.9 Neutropenia, unspecified; D69.6 Thrombocytopenia, unspecified; R16.1 Splenomegaly, not elsewhere classified; E03.9 Hypothyroidism, unspecified; W01.0XXA Fall on same level from slipping, tripping and stumbling without subsequent striking against object, initial encounter; Z79.899 Other long term (current) drug therapy
CPT/HCPCS: 36415; 70450; 71045; 72132; 80053; 80164; 83615; 83880; 84443; 84484; 85025; 85046; 85610; 93005; 96374; 97110; 97116; 97162; 97165; 99285; A9270; G0515; J1940; Q9967; 85008; 99217; 99220; 99225; G0378

== ENCOUNTER 2018-12-01 17:11 | Emergency (ER) | payer MEDICARE, OTHER ==
[2018-12-01] MEDS ORDERED: Sodium Chloride 0.9% 10 ML Syringe FLUSH PRN (17:31)
--- NOTE | 2018-12-01 17:53 | EDM.PDOC ---
ED HPI GENERAL MEDICAL PROBLEM - General Time Seen by Provider: 12/01/18 17:11 Source of Information: Reports: Patient History Limitations: Reports: No Limitations - History of Present Illness INITIAL COMMENTS - FREE TEXT/NARRATIVE: Pt. presents to ER via EMS. She is a resident at [facility], and was seen at [facility] with a 4 day history of cough and chest congestion. She states that it has been non-productive. She states that the had an elevated temp at the [facility]. No documentation for the [facility] accompany the patient to ER. Pt. denies any significant shortness of breath, as she is quite inactive and uses a walker for ambulation. She states that she does have some mild dyspnea and increased work of breathing, however. No nausea or vomiting. She states that she got a flu shot Wednesday. Denies any episodes of aspiration or choking. No sore throat. No rhinorrhea or congestion. Denies any increased peripheral edema. According to her med record she has some diastolic HF. Denies any chest, jaw, arm, neck, or back pain. Pt. is a code 3. - Related Data Allergies Allergy/AdvReac Type Severity Reaction Status Date / Time No Known Drug Allergies Allergy Other Verified 12/01/18 18:12 pollen extracts Allergy Irritabilit Verified 12/01/18 18:12 y Home Meds: Home Meds Levothyroxine 75 mcg PO ACBRK 01/15/14 [History] Primidone 250 mg PO BID 01/15/14 [History] Acetaminophen [Tylenol Extra Strength] 1,000 mg PO TID 07/31/18 [History] Alendronate Sodium 70 mg PO Q7D 07/31/18 [History] Brimonidine Tartrate 1 drop EYERT TID 07/31/18 [History] Dextran 70/Hypromellose [Artificial Tears] 1 each OP Q4H PRN 07/31/18 [History] Dextromethorphan HBr [Vicks Dayquil Cough] 30 ml PO Q6H PRN 07/31/18 [History] Divalproex Sodium [Depakote] 125 mg PO BID 07/31/18 [History] Dorzolamide HCl/Timolol Maleat [Cosopt Eye Drops] 1 drop EYERT BID 07/31/18 [ History] Latanoprost [Xalatan 0.005% Ophth Soln] 1 drop EYERT QPM 07/31/18 [History] Menthol [Biofreeze] 1 applic TOP QID 07/31/18 [History] Sennosides/Docusate Sodium [Senna Plus Tablet] 1 each PO DAILY 07/31/18 [History ] diphenhydrAMINE HCl [Benadryl] 25 mg PO Q6H PRN 07/31/18 [History] Divalproex Sodium [Depakote ER] 500 mg PO BID 08/01/18 [History] Furosemide [Lasix] 20 mg PO DAILY 30 Days #30 tablet 08/02/18 [Rx] Past Medical History HEENT History: Reports: Cataract, Impaired Vision [employer] History: Reports: Musculoskeletal History: Reports: Arthritis, Osteoporosis Neurological History: Reports: Seizure Endocrine/Metabolic History: Reports: Hypothyroidism - Infectious Disease History Infectious Disease History: Reports: Chicken Pox, Measles, Mumps - Past Surgical History HEENT Surgical History: Reports: Cataract Surgery Musculoskeletal Surgical History: Reports: Hip Replacement Social & Family History - Family History Family Medical History: Noncontributory - Caffeine Use Caffeine Use: Reports: Coffee, Tea - Living Situation & Occupation Living situation: Reports: Other ED ROS GENERAL - Review of Systems Review Of Systems: See Below Constitutional: Reports: No Symptoms HEENT: Reports: No Symptoms Respiratory: Reports: Shortness of Breath, Cough Cardiovascular: Reports: No Symptoms Endocrine: Reports: No Symptoms GI/Abdominal: Reports: No Symptoms : Reports: No Symptoms Musculoskeletal: Reports: No Symptoms Skin: Reports: No Symptoms Neurological: Reports: No Symptoms Psychiatric: Reports: No Symptoms Hematologic/Lymphatic: Reports: No Symptoms Immunologic: Reports: No Symptoms ED EXAM, GENERAL - Physical Exam Exam: See Below Exam Limited By: No Limitations General Appearance: Alert, WD/WN, No Apparent Distress Head: Atraumatic, Normocephalic Neck: Normal Inspection, Supple, Non-Tender, Full Range of Motion Respiratory/Chest: No Respiratory Distress, Decreased Breath Sounds, Crackles, Rhonchi Cardiovascular: Normal Peripheral Pulses, Regular Rate, Rhythm, No Edema, No Gallop, No JVD, No Murmur GI/Abdominal: Normal Bowel Sounds, Soft, Non-Tender, No Organomegaly, No Distention, No Mass (Female) Exam: Deferred Rectal (Female) Exam: Deferred Back Exam: Normal Inspection, Full Range of Motion Extremities: Normal Inspection, Normal Range of Motion, Non-Tender Neurological: Alert, Oriented, CN II-XII Intact, Normal Cognition, Normal Gait, Normal Reflexes, No Motor/Sensory Deficits Psychiatric: Normal Affect, Normal Mood Skin Exam: Warm, Dry, Intact, Normal Color, No Rash Lymphatic: No Adenopathy Course - Vital Signs Last Recorded V/S: Last Vital Signs Temp 36.2 C 12/01/18 17:15 Pulse 83 12/01/18 17:15 Resp 20 12/01/18 17:15 BP 108/40 L 12/01/18 17:15 Pulse Ox 93 L 12/01/18 17:15 - Orders/Labs/Meds Orders: Active Orders 24 hr Category Date Time Status EKG Documentation Completion [RC] STAT Care 12/01/18 17:35 Active CULTURE BLOOD [BC] Stat Lab 12/01/18 18:00 Results CULTURE BLOOD [BC] Stat Lab 12/01/18 18:07 Received Blood Culture x2 Reflex Set [OM.PC] Stat Oth 12/01/18 17:33 Ordered Peripheral IV Insertion Adult [OM.PC] Routine Oth 12/01/18 17:33 Ordered Labs: Laboratory Tests 12/01/18 12/01/18 12/01/18 Range/Units 18:00 18:00 18:00 WBC 5.4 (4.0-10.0) x10^3/uL RBC 3.78 L (4.00-5.50) x10^6/uL Hgb 11.6 L (12.0-16.0) g/dL Hct 36.9 (33.0-47.0) % MCV 97.6 H (78.0-93.0) fL MCH 30.7 (26.0-32.0) pg MCHC 31.4 L (32.0-36.0) g/dL RDW Coeff of Dominguez 14.1 (10.0-15.0) % Plt Count 68 L (130-400) x10^3/uL Add Manual Diff Yes Neutrophils % (Manual) 24 L (50-80) % Band Neutrophils % 2 (0-6) % Lymphocytes % (Manual) 30 (25-50) % Reactive Lymphs % 14 H (0) % Atypical Lymphs % 20 H (0) % Monocytes % (Manual) 6 (2-11) % Eosinophils % (Manual) 4 (0-4) % Vacuolated Monocytes Rare Smudge Cells Many H Toxic Granulation Rare Platelet Estimate Decreased L Hypochromasia 1+ slight H Macrocytosis 1+ slight H Tear Drop Cells Rare PT 11.8 (10.0-12.8) SEC INR 1.0 L (2.0-3.5) Sodium 145 (136-145) mmol/L Potassium 3.3 L (3.5-5.1) mmol/L Chloride 106 (98-107) mmol/L Carbon Dioxide 31 (21-32) mmol/L Anion Gap 11.3 (10-20) mmol/L BUN 26 H (7-18) mg/dL Creatinine 0.6 (0.55-1.02) mg/dL Est Cr Clr Drug Dosing TNP Estimated GFR (MDRD) > 60 Glucose 110 H (74-106) mg/dL Lactic Acid (0.4-2.0) mmol/L Calcium 8.0 L (8.5-10.1) mg/dL Corrected Calcium 8.88 (8.5-10.1) mg/dL Phosphorus 2.6 (2.6-4.7) mg/dL Magnesium 1.7 L (1.8-2.4) mg/dL Total Bilirubin 0.4 (0.2-1.0) mg/dL AST 38 H (15-37) U/L ALT 24 (14-59) U/L Alkaline Phosphatase 141 H (46-116) U/L Troponin I < 0.017 (<=0.056) ng/mL C-Reactive Protein 8.7 H (<=0.9) mg/dL NT-Pro-B Natriuret Pep 912 H (<=450) pg/mL Total Protein 5.8 L (6.4-8.2) g/dL Albumin 2.9 L (3.4-5.0) g/dL Globulin 2.9 Albumin/Globulin Ratio 1.00 12/01/18 Range/Units 18:00 WBC (4.0-10.0) x10^3/uL RBC (4.00-5.50) x10^6/uL Hgb (12.0-16.0) g/dL Hct (33.0-47.0) % MCV (78.0-93.0) fL MCH (26.0-32.0) pg MCHC (32.0-36.0) g/dL RDW Coeff of Dominguez (10.0-15.0) % Plt Count (130-400) x10^3/uL Add Manual Diff Neutrophils % (Manual) (50-80) % Band Neutrophils % (0-6) % Lymphocytes % (Manual) (25-50) % Reactive Lymphs % (0) % Atypical Lymphs % (0) % Monocytes % (Manual) (2-11) % Eosinophils % (Manual) (0-4) % Vacuolated Monocytes Smudge Cells Toxic Granulation Platelet Estimate Hypochromasia Macrocytosis Tear Drop Cells PT (10.0-12.8) SEC INR (2.0-3.5) Sodium (136-145) mmol/L Potassium (3.5-5.1) mmol/L Chloride (98-107) mmol/L Carbon Dioxide (21-32) mmol/L Anion Gap (10-20) mmol/L BUN (7-18) mg/dL Creatinine (0.55-1.02) mg/dL Est Cr Clr Drug Dosing Estimated GFR (MDRD) Glucose (74-106) mg/dL Lactic Acid 1.5 (0.4-2.0) mmol/L Calcium (8.5-10.1) mg/dL Corrected Calcium (8.5-10.1) mg/dL Phosphorus (2.6-4.7) mg/dL Magnesium (1.8-2.4) mg/dL Total Bilirubin (0.2-1.0) mg/dL AST (15-37) U/L ALT (14-59) U/L Alkaline Phosphatase (46-116) U/L Troponin I (<=0.056) ng/mL C-Reactive Protein (<=0.9) mg/dL NT-Pro-B Natriuret Pep (<=450) pg/mL Total Protein (6.4-8.2) g/dL Albumin (3.4-5.0) g/dL Globulin Albumin/Globulin Ratio Meds: Medications Discontinued Medications Generic Name Dose Route Start Last Admin Trade Name Freq PRN Reason Stop Dose Admin Ceftriaxone Sodium 1 gm 12/01/18 18:20 12/01/18 18:36 Rocephin IVPUSH 12/01/18 18:21 1 gm STAT ONE Administration Doxycycline Hyclate 100 mg 12/01/18 18:48 12/01/18 19:00 Vibramycin PO 12/01/18 18:49 100 mg ONETIME ONE Administration Sodium Chloride 10 ml 12/01/18 17:31 Saline Flush FLUSH ASDIRECTED PRN Keep Vein Open - Radiology Interpretation Free Text/Narrative:: Infiltrate noted on chest x-ray Departure - Departure Time of Disposition: 19:18 Disposition: DC/Tfer to Clerical Adjudicator [facility] 62 Clinical Impression: Pneumonia - Discharge Information Instructions: Doxycycline tablets or capsules, Community-Acquired Pneumonia, Adult, [id number], Probiotics Referrals: Catherine Tam DO [Primary Care Provider] - Forms: ED Department Discharge Additional Instructions: Start doxycycline 100mg twice daily tomorrow. Tylenol as needed for fever/discomfort. Offer plenty of fluids. Recheck in clinic in 10-14 days, sooner if not gradually improving. - My Orders Last 24 Hours: My Active Orders 12/01/18 17:33 Blood Culture x2 Reflex Set [OM.PC] Stat Peripheral IV Insertion Adult [OM.PC] Routine 12/01/18 17:35 EKG Documentation Completion [RC] STAT 12/01/18 18:00 CULTURE BLOOD [BC] Stat 12/01/18 18:07 CULTURE BLOOD [BC] Stat - Assessment/Plan Last 24 Hours: My Active Orders 12/01/18 17:33 Blood Culture x2 Reflex Set [OM.PC] Stat Peripheral IV Insertion Adult [OM.PC] Routine 12/01/18 17:35 EKG Documentation Completion [RC] STAT 12/01/18 18:00 CULTURE BLOOD [BC] Stat 12/01/18 18:07 CULTURE BLOOD [BC] Stat Plan: Start doxycycline 100mg twice daily tomorrow. Tylenol as needed for fever/discomfort. Offer plenty of fluids. Recheck in clinic in 10-14 days, sooner if not gradually improving.
[2018-12-01] MEDS ORDERED: cefTRIAXone 1 GM Vial IVPUSH ONE (18:20)
[2018-12-01 18:22] VITALS: BP 108/40; PULSE 83
[2018-12-01 18:37] LABS: CHLORIDE,CL 106 mmol/L (98-107); SODIUM,NA 145 mmol/L (136-145)
[2018-12-01 18:38] LABS: ANION GAP 11.3 mmol/L (10-20)
--- NOTE | 2018-12-01 18:47 | CR ---
[id number] RAD/RAD Chest PA or AP 1V EXAM: FRONTAL CHEST INDICATION: Cough, congestion and fever. COMPARISON: July 31, 2018. DISCUSSION: A small left pleural effusion has increased in size. There is associated left base atelectasis and possible left lower lobe infiltrates. Continued follow-up is suggested to ensure resolution. IMPRESSION: 1. Recurrent and/or increased small left pleural effusion and associated left base atelectasis and infiltrates. Follow-up and/or chest CT with contrast is suggested. Alirio Diaz MD 12/01/18 [id number] Thank you for allowing us to participate in the care of your patient.
[2018-12-01] MEDS ORDERED: Doxycycline 100 MG Cap PO ONE (18:48)
== END 2018-12-01 19:18 ==
LOC: VM.ED 17:11
DX: J18.9 Pneumonia, unspecified organism (principal); E03.9 Hypothyroidism, unspecified; Z91.09 Other allergy status, other than to drugs and biological substances; Z79.899 Other long term (current) drug therapy
CPT/HCPCS: 36415; 71045; 80053; 83605; 83735; 83880; 84100; 84484; 85025; 85610; 86140; 87040; 87804; 93005; 96374; 99284; A9270; J0696